=== PATIENT | male | born 1965 | race Caucasian/White ===

== ENCOUNTER 2016-09-04 16:08 | Emergency (ER) | payer BC ==
[~2016-09-04] VITALS: Ht 185.4 cm; Wt 101.0 kg
[2016-09-04] MEDS ORDERED: INDOMETHACIN25 MG PO (16:36)
[2016-09-04] MEDS ORDERED: COLCHICINE0.6 M2 PO (16:36)
[2016-09-04] MEDS ORDERED: LORTAB 5-325 MG1 TAB PO (16:36)
[2016-09-04] MEDS ORDERED: DOXYCYC MONO100 M1 PO (16:37)
[2016-09-04 17:15] VITALS: BP 122/84
== END 2016-09-04 17:25 | disposition home or self-care (01) | DRG 554 ==
LOC: ED 16:08
DX: M10.071 Idiopathic gout, right ankle and foot (principal)

== ENCOUNTER 2021-08-21 07:16 | Day surgery (SDC) | payer OTHER ==
[~2021-08-21] VITALS: Ht 185.4 cm; Wt 94.8 kg
[~2021-08-21 07:16] MED LIST: COLCHICINE0.6 M2 PO; DOXYCYC MONO100 M1 PO; FLUOXETINE20 MG PO; INDOMETHACIN25 MG PO; LORTAB 5-325 MG1 TAB PO; PROTONIX40 M2 PO; ROSUVASTATIN CA40 MG PO; TRAZODONE100 MG PO
[2021-08-21] MEDS ORDERED: TYLENOL500 MG PO (07:41)
[2021-08-21 10:05] VITALS: BP 134/76
== END 2021-08-21 10:18 | disposition home or self-care (01) | DRG 699 ==
LOC: ORM 07:16
PROVIDERS: ATTEND Urology
PROC: 0TP98DZ Removal of Intraluminal Device from Ureter, Via Natural or Artificial Opening Endoscopic (ICD-10-PCS; principal; 2021-08-21)
PROC: BT1D1ZZ Fluoroscopy of Right Kidney, Ureter and Bladder using Low Osmolar Contrast (ICD-10-PCS; 2021-08-21)
DX: Z46.6 Encounter for fitting and adjustment of urinary device (principal); N13.8 Other obstructive and reflux uropathy; N40.1 Benign prostatic hyperplasia with lower urinary tract symptoms; I25.10 Atherosclerotic heart disease of native coronary artery without angina pectoris; K21.9 Gastro-esophageal reflux disease without esophagitis; I10 Essential (primary) hypertension; F32.A Depression, unspecified; F41.9 Anxiety disorder, unspecified; Z87.891 Personal history of nicotine dependence; Z87.828 Personal history of other (healed) physical injury and trauma
CPT/HCPCS: C1769; J1956; Q9967

== ENCOUNTER 2022-01-15 21:52 | Emergency (ER) | payer BC ==
[~2022-01-15] VITALS: Ht 185.4 cm; Wt 100.0 kg
[~2022-01-15 21:52] MED LIST changes: +TYLENOL500 MG PO
[2022-01-15 23:44] VITALS: BP 143/78
[2022-01-20] MEDS ORDERED: WELLBUTRIN150 M1 PO (11:03)
[2022-01-20] MEDS ORDERED: PERCOCET1 TA4 PO (11:03)
[2022-01-20] MEDS ORDERED: METHOCARBAMOL750 MG PO (11:04)
== END 2022-01-15 23:45 | disposition home or self-care (01) | DRG 563 ==
LOC: ED 21:52
DX: S93.402A Sprain of unspecified ligament of left ankle, initial encounter (principal); X50.9XXA Other and unspecified overexertion or strenuous movements or postures, initial encounter

== ENCOUNTER 2022-02-02 10:12 | Inpatient (IN) | payer BC ==
[~2022-02-02] VITALS: Ht 185.4 cm; Wt 99.8 kg
[~2022-02-02 10:12] MED LIST changes: +METHOCARBAMOL750 MG PO; +PERCOCET1 TA4 PO; +WELLBUTRIN150 M1 PO
[2022-02-12] VITALS (10 sets, daily range): BP systolic 124–155; BP diastolic 85–94
[2022-02-13 03:59] VITALS: BP 176/95
[2022-02-13 04:00] VITALS: BP 174/100
[2022-02-13 05:51] VITALS: BP 136/86
[2022-02-13 06:03] LABS: HEMATOCRIT 38.2 % (39.0-50.0); HEMOGLOBIN 12.9 g/dl (14.0-18.0); IMMATURE GRANULOCYTES 0.1 % (0.0-5.0); MEAN CORPUSCULAR HGB 32.4 pG CALC (26.0-32.0); MEAN CORPUSCULAR HGB CONC 33.8 g/dL CAL (32.0-36.0); NEUT# 7.47 thou/uL (1.82-7.42); RED BLOOD COUNT 3.98 mill/uL (4.70-6.10)
[2022-02-13 06:19] LABS: ALKALINE PHOSPHATASE 87 u/l (38-126); ANION GAP 10 (6-22 (CALC)); BILIRUBIN, TOTAL 0.7 mg/dL (0.0-1.4); BUN 11 mg/dL (9-20); BUN/CREATININE RATIO 14 (12-20 (CALC)); CARBON DIOXIDE 29 mmol/l (22-30); CHLORIDE 103 mmol/l (95-108); CREATININE 0.8 mg/dL (0.7-1.3); GFR FOR AFR.AMER. > 60 ML/MIN (>=60 (CALC)); GFR OTHER RACES > 60 ML/MIN (>=60 (CALC)); POTASSIUM 4.5 mmol/l (3.5-5.1); SGOT/AST 22 u/l (17-59); SODIUM 137 mmol/l (137-146)
[2022-02-13 06:22] LABS: ALBUMIN 3.4 g/dL (3.2-5.0); TOTAL PROTEIN 5.9 g/dL (6.3-8.2)
[2022-02-13 15:37] VITALS: BP 145/84
[2022-02-13 19:14] VITALS: BP 156/72
[2022-02-14 02:40] VITALS: BP 111/72
[2022-02-14 04:32] VITALS: BP 125/71
[2022-02-14 07:58] VITALS: BP 127/80
[2022-02-14 14:40] VITALS: BP 127/80
[2022-02-14 18:43] VITALS: BP 137/77
[2022-02-15 00:01] VITALS: BP 124/78
[2022-02-15 05:16] LABS: IMMATURE GRANULOCYTES 0.3 % (0.0-5.0); MEAN CORPUSCULAR HGB 32.4 pG CALC (26.0-32.0); MEAN CORPUSCULAR HGB CONC 33.4 g/dL CAL (32.0-36.0); NEUT# 3.97 thou/uL (1.82-7.42); RED BLOOD COUNT 2.96 mill/uL (4.70-6.10); RED CELL DISTRI WIDTH 14.2 % (11.5-15.5)
[2022-02-15 05:36] LABS: HEMATOCRIT 28.7 % (39.0-50.0); HEMOGLOBIN 9.6 g/dl (14.0-18.0)
[2022-02-15 05:42] LABS: ANION GAP 8 (6-22 (CALC)); BUN 4 mg/dL (9-20); BUN/CREATININE RATIO 6 (12-20 (CALC)); CARBON DIOXIDE 28 mmol/l (22-30); CHLORIDE 103 mmol/l (95-108); CREATININE 0.6 mg/dL (0.7-1.3); GFR FOR AFR.AMER. > 60 ML/MIN (>=60 (CALC)); GFR OTHER RACES > 60 ML/MIN (>=60 (CALC)); POTASSIUM 3.8 mmol/l (3.5-5.1); SODIUM 135 mmol/l (137-146)
[2022-02-15 06:42] VITALS: BP 142/85
[2022-02-15 16:09] VITALS: BP 138/77
[2022-02-15 18:57] VITALS: BP 121/68
[2022-02-16 04:21] VITALS: BP 138/84
[2022-02-16 06:43] VITALS: BP 122/78
[2022-02-16] MEDS ORDERED: PERCOCET 5/321 COMBO PO (09:48)
== END 2022-02-16 11:33 | disposition home or self-care (01) | DRG 331 ==
LOC: OR 02-12 07:00 → MS2 02-12 07:05 → OR 02-12 08:00 → MS2 02-12 11:25
PROVIDERS: ADMIT Surgery; ATTEND Surgery
PROC: 0DQE0ZZ Repair Large Intestine, Open Approach (ICD-10-PCS; principal; 2022-02-12)
PROC: 0DNU0ZZ Release Omentum, Open Approach (ICD-10-PCS; 2022-02-12)
PROC: 0DN80ZZ Release Small Intestine, Open Approach (ICD-10-PCS; 2022-02-12)
PROC: 0DJD4ZZ Inspection of Lower Intestinal Tract, Percutaneous Endoscopic Approach (ICD-10-PCS; 2022-02-12)
PROC: 0T788DZ Dilation of Bilateral Ureters with Intraluminal Device, Via Natural or Artificial Opening Endoscopic (ICD-10-PCS; 2022-02-12)
PROC: 0DJD8ZZ Inspection of Lower Intestinal Tract, Via Natural or Artificial Opening Endoscopic (ICD-10-PCS; 2022-02-12)
DX: Z43.3 Encounter for attention to colostomy (principal); K66.0 Peritoneal adhesions (postprocedural) (postinfection); Z87.828 Personal history of other (healed) physical injury and trauma
CPT/HCPCS: C1769; J0131; Q9967

== ENCOUNTER 2022-02-22 12:29 | Inpatient (IN) | payer BC ==
[~2022-02-22] VITALS: Ht 185.4 cm; Wt 88.0 kg
[2022-02-22] VITALS (22 sets, daily range): BP systolic 112–192; BP diastolic 85–101
[~2022-02-22 12:29] MED LIST changes: +PERCOCET 5/321 COMBO PO
[2022-02-22 16:01] LABS: IMMATURE GRANULOCYTES 0.3 % (0.0-5.0); MEAN CELL VOLUME 92.7 fL CALC (80.0-100.0); MEAN CORPUSCULAR HGB 31.6 pG CALC (26.0-32.0); MEAN CORPUSCULAR HGB CONC 34.1 g/dL CAL (32.0-36.0); NEUT# 6.61 thou/uL (1.82-7.42); RED BLOOD COUNT 4.91 mill/uL (4.70-6.10); RED CELL DISTRI WIDTH 13.9 % (11.5-15.5)
[2022-02-22 16:09] LABS: BILIRUBIN, TOTAL 0.9 mg/dL (0.0-1.4); CREATININE 1.5 mg/dL (0.7-1.3); HEMATOCRIT 45.5 % (39.0-50.0); HEMOGLOBIN 15.5 g/dl (14.0-18.0)
[2022-02-22 16:11] LABS: ALBUMIN 5.3 g/dL (3.2-5.0); POTASSIUM 3.5 mmol/l (3.5-5.1)
[2022-02-22 20:48] LABS: URINE BILIRUBIN - DIPSTICK NEGATIVE (NEGATIVE); URINE BLOOD DIPSTICK NEGATIVE (NEGATIVE); URINE COLOR YELLOW; URINE GLUCOSE - DIPSTICK NEGATIVE (NEGATIVE); URINE KETONE NEGATIVE (NEGATIVE); URINE LEUK ESTERASE NEGATIVE (NEGATIVE); URINE PH 5.5 (4.5-8.0); URINE PROTEIN - DIPSTICK TRACE mg/dL (NEG-TRACE); URINE SPECIFIC GRAVITY 1.025; URINE UROBILINOGEN - DIPSTICK 0.2 E.U./dL (0.2)
[2022-02-22 20:52] LABS: URINE NITRITE - DIPSTICK NEGATIVE (Negative)
[2022-02-23 06:15] VITALS: BP 165/94
[2022-02-23 06:17] VITALS: BP 138/98
[2022-02-23 07:13] LABS: IMMATURE GRANULOCYTES 0.5 % (0.0-5.0); MEAN CELL VOLUME 93.6 fL CALC (80.0-100.0); MEAN CORPUSCULAR HGB 31.6 pG CALC (26.0-32.0); MEAN CORPUSCULAR HGB CONC 33.8 g/dL CAL (32.0-36.0); NEUT# 6.78 thou/uL (1.82-7.42); RED BLOOD COUNT 4.21 mill/uL (4.70-6.10); RED CELL DISTRI WIDTH 13.7 % (11.5-15.5)
[2022-02-23 07:19] LABS: HEMATOCRIT 39.4 % (39.0-50.0); HEMOGLOBIN 13.3 g/dl (14.0-18.0)
[2022-02-23 07:40] LABS: ANION GAP 13 (6-22 (CALC)); BUN 32 mg/dL (9-20); BUN/CREATININE RATIO 41 (12-20 (CALC)); CARBON DIOXIDE 32 mmol/l (22-30); CHLORIDE 93 mmol/l (95-108); CREATININE 0.8 mg/dL (0.7-1.3); GFR FOR AFR.AMER. > 60 ML/MIN (>=60 (CALC)); GFR OTHER RACES > 60 ML/MIN (>=60 (CALC)); POTASSIUM 3.2 mmol/l (3.5-5.1); SODIUM 136 mmol/l (137-146)
[2022-02-23 15:38] VITALS: BP 138/92
[2022-02-23 19:00] VITALS: BP 138/92
[2022-02-24] VITALS (7 sets, daily range): BP systolic 100–138; BP diastolic 70–93
[2022-02-25 04:40] VITALS: BP 127/75
[2022-02-25 06:11] LABS: HEMATOCRIT 40.4 % (39.0-50.0); HEMOGLOBIN 13.8 g/dl (14.0-18.0); IMMATURE GRANULOCYTES 0.1 % (0.0-5.0); MEAN CELL VOLUME 93.7 fL CALC (80.0-100.0); MEAN CORPUSCULAR HGB CONC 34.2 g/dL CAL (32.0-36.0); NEUT# 4.65 thou/uL (1.82-7.42); RED BLOOD COUNT 4.31 mill/uL (4.70-6.10); RED CELL DISTRI WIDTH 13.4 % (11.5-15.5)
[2022-02-25 06:14] LABS: ANION GAP 12 (6-22 (CALC)); BUN 18 mg/dL (9-20); BUN/CREATININE RATIO 21 (12-20 (CALC)); CARBON DIOXIDE 34 mmol/l (22-30); CHLORIDE 92 mmol/l (95-108); CREATININE 0.8 mg/dL (0.7-1.3); GFR FOR AFR.AMER. > 60 ML/MIN (>=60 (CALC)); GFR OTHER RACES > 60 ML/MIN (>=60 (CALC)); SODIUM 135 mmol/l (137-146)
[2022-02-25 06:30] VITALS: BP 114/75
[2022-02-25 14:30] VITALS: BP 110/86
[2022-02-26 04:00] VITALS: BP 117/90
[2022-02-26 04:12] VITALS: BP 117/90
[2022-02-26 07:06] VITALS: BP 128/85
== END 2022-02-26 14:28 | disposition home or self-care (01) | DRG 389 ==
LOC: ED 12:29 → MS2 19:54
PROVIDERS: Nurse Practitioner; ADMIT Surgery; ATTEND Surgery
DX: K56.690 Other partial intestinal obstruction (principal); N17.9 Acute kidney failure, unspecified; E86.0 Dehydration; K59.01 Slow transit constipation; T40.605A Adverse effect of unspecified narcotics, initial encounter; Z79.891 Long term (current) use of opiate analgesic; Z98.0 Intestinal bypass and anastomosis status; Z20.822 Contact with and (suspected) exposure to COVID-19
CPT/HCPCS: J1650; Q9967

== ENCOUNTER 2023-05-08 07:53 | Emergency (ER) | payer OTHER ==
[~2023-05-08] VITALS: Ht 185.4 cm; Wt 95.0 kg
[2023-05-08 08:15] VITALS: BP 149/103
[2023-05-08] MEDS ORDERED: ORPHENADRINE CITRATE 30 MG/ML AMP IM ONE (08:45)
[2023-05-08] MEDS ORDERED: KETOROLAC TROMETHAMINE 30 MG/ML SDV IM ONE (08:45)
[2023-05-08] MEDS ORDERED: DEXAMETHASONE SOD. PHOSPHATE 10 MG/ML VIAL IM ONE (08:45)
[2023-05-08 09:30] VITALS: BP 152/90
[2023-05-08 10:00] VITALS: BP 150/95
[2023-05-08 10:30] VITALS: BP 154/94
[2023-05-08 11:00] VITALS: BP 151/95
[2023-05-08] MEDS ORDERED: MEDDOSEPAK PO (11:12)
[2023-05-08] MEDS ORDERED: NABUMETONE750 MG PO (11:12)
[2023-05-08] MEDS ORDERED: TRAMADOL HYDROC50 M1 PO (11:12)
[2023-05-08 11:19] VITALS: BP 151/95
== END 2023-05-08 11:24 | disposition home or self-care (01) | DRG 552 ==
LOC: ED 07:53
DX: S23.3XXA Sprain of ligaments of thoracic spine, initial encounter (principal); X50.0XXA Overexertion from strenuous movement or load, initial encounter; Y93.89 Activity, other specified; Y92.89 Other specified places as the place of occurrence of the external cause; Y99.0 Civilian activity done for income or pay